=== PATIENT | male | born 1995 | race American Indian/Alaskan Native ===

== ENCOUNTER 2020-11-23 20:49 | Emergency (ER) | payer OTHER ==
[~2020-11-23] VITALS: Ht 182.9 cm; Wt 92.7 kg
[2020-11-23 20:51] VITALS: BP 137/70
[2020-11-23] MEDS ORDERED: LIDOCAINE 1% MDV 20ML VIAL INFIL ONE (21:25)
[2020-11-23] MEDS ORDERED: BOOSTRIX/ADACEL VACCINE (DIPHTH/PERTUSS/ACELL/TETANUS) 0.5ML SYR IM ONE (23:00)
--- NOTE | 2020-11-23 23:11 | REPVR ---
PROCEDURE INFORMATION: Exam: XR Right Forearm Exam date and time: 11/23/2020 9:39 PM Age: 25 years old Clinical indication: Injury or trauma; Other: Laceration; Arm, upper and hand; Right; Additional info: R forearm lac, pain with supination TECHNIQUE: Imaging protocol: XR Right forearm. Views: 2 views. COMPARISON: No relevant prior studies available. FINDINGS: Bones/joints: No fracture. Soft tissues: Soft tissue injury and laceration of the distal forearm along the ulnar aspect. No radiopaque foreign body. IMPRESSION: 1. Soft tissue injury with soft tissue swelling and laceration of the distal forearm along the ulnar aspect. 2. Otherwise negative right forearm. No fracture. Electronically signed by: Jorje Guy On 11/23/2020 23:10:43 PM
--- NOTE | 2020-11-23 23:12 | REPVR ---
PROCEDURE INFORMATION: Exam: XR Right Hand Exam date and time: 11/23/2020 9:39 PM Age: 25 years old Clinical indication: Injury or trauma; Other: Laceration; Arm, upper and hand; Right; Additional info: R proximal thumb puncture wound TECHNIQUE: Imaging protocol: XR Right hand. Views: 3 or more views. COMPARISON: No relevant prior studies available. FINDINGS: Bones/joints: Normal. No fracture. Soft tissues: Normal. IMPRESSION: Negative right hand. Electronically signed by: Jorje Gyu On 11/23/2020 23:12:29 PM
[2020-11-23] MEDS ORDERED: ACETAMINOPHEN 500 MG TAB PO ONE (23:20)
--- NOTE | 2020-11-24 00:13 | REPVR ---
PROCEDURE INFORMATION: Exam: XR Right Wrist Exam date and time: 11/23/2020 11:56 PM Age: 25 years old Clinical indication: Other: R wrist pain S/P lac to right fgorearm; Additional info: R wrist pain S/P lac to right forearm TECHNIQUE: Imaging protocol: XR Right wrist. Views: 3 or more views. COMPARISON: CR Forearm Radius,[place] RIGHT 11/23/2020 9:14 PM FINDINGS: Bones/joints: Normal. No fracture. Soft tissues: Normal. IMPRESSION: Negative right wrist. Electronically signed by: Jorje Guy On 11/24/2020 00:13:02 AM
[2020-11-24] MEDS ORDERED: CEPHALEXIN 500 MG CAP PO ONE (00:15)
[2020-11-24] MEDS ORDERED: CEPH500C PO (00:19)
== END 2020-11-24 00:57 | disposition home or self-care (01) ==
LOC: M ED 20:49
DX: S51.811A Laceration without foreign body of right forearm, initial encounter (principal); S61.031A Puncture wound without foreign body of right thumb without damage to nail, initial encounter; W26.8XXA Contact with other sharp object(s), not elsewhere classified, initial encounter; Y92.9 Unspecified place or not applicable; Y93.9 Activity, unspecified; Y99.1 Military activity; Z23 Encounter for immunization; Z86.16 Personal history of COVID-19